=== PATIENT | male | born 1975 | race Caucasian/White ===

== ENCOUNTER 2022-11-23 17:31 | Emergency (ER) | payer MEDICAID ==
[~2022-11-23] VITALS: Ht 172.7 cm; Wt 95.0 kg
[2022-11-23 17:56] VITALS: BP 126/63
[2022-11-23] MEDS ORDERED: METHYLPREDNISOLONE SOD SUCC 125 MG/2 ML VIAL IV ONE (18:00)
[2022-11-23] MEDS ORDERED: FAMOTIDINE 20MG/2ML VIAL IV ONE (18:00)
[2022-11-23] MEDS ORDERED: SODIUM CHLORIDE 0.9% 1,000 ML IV ONE (18:00)
[2022-11-23] MEDS ORDERED: EPIN0.3P3 IM (19:26)
[2022-11-23] MEDS ORDERED: FAMO-135 MT (19:26)
[2022-11-23] MEDS ORDERED: DIPH25TA62 MT (19:26)
[2022-11-23] MEDS ORDERED: P20 MT (19:26)
== END 2022-11-23 19:46 | disposition home or self-care (01) ==
LOC: ER 17:31
DX: T78.40XA Allergy, unspecified, initial encounter (principal); X58.XXXA Exposure to other specified factors, initial encounter; F41.9 Anxiety disorder, unspecified
CPT/HCPCS: 96361; 96374; 96375; 99285; J2930; J3490; J7030; Z7610